=== PATIENT | male | born 1940 | race Caucasian/White ===

== ENCOUNTER 2017-06-28 16:38 | Emergency (ER) | payer OTHER ==
[~2017-06-28] VITALS: Ht 188 cm; Wt 86.0 kg
[2017-06-28 16:45] VITALS: BP 127/89; PULSE 106; RESP 16; TEMP 98.3; O2SAT 96
[2017-06-28] MEDS ORDERED: TETANUS/DIPHTHERIA TOXOID ADULT 0.5 ML VIAL IM ONE (17:00)
[2017-06-28] MEDS ORDERED: LISI2.5T3 PO (17:07)
[2017-06-28] MEDS ORDERED: LIDOCAINE HCL 2% 20 ML VIAL INFIL ONE (17:15)
[2017-06-28] MEDS ORDERED: LIDOCAINE HCL 2% 50 ML VIAL ONE (17:38)
--- NOTE | 2017-06-28 17:45 | PD ---
HPI . Head injury Chief Complaint: Fall Time Seen by Provider: 16:57 Travel History International Travel<30 days: No Contact w/Intl Traveler<30days: No History of Present Illness HPI This patient presents with chief complaint of a laceration to his forehead and head. He states that he tripped and fell and struck his head and face. He denies loss of consciousness. He denies neck pain. He states that he is not on a blood thinner. He does not know the date of his last tetanus shot. [facility] Past Medical History Medical History: Denies Significant Hx Past Surgical History Surgical History: No Previous Surgery Social History Alcohol Use: Yes (4/DAY) Tobacco Use: No Allergies-Medications (Allergen,Severity, Reaction): Coded Allergies: No Known Allergies (Unverified , 06/28/17) Reported Meds & Prescriptions Reported Meds & Active Scripts Active Reported Lisinopril 2.5 Mg Tab 2.5 Mg PO DAILY Review of Systems Except as stated in HPI: all other systems reviewed are Neg Eyes: No: Blurred Vision HENT: No: Lightheadedness Gastrointestinal: No: Nausea Skin: Positive Other (laceration) Physical Exam Narrative GENERAL: Awake and alert and in no acute distress. SKIN: Warm and dry. Large laceration involving the left side of his forehead and his scalp. HEAD: Normocephalic. EYES: Pupils equal and round. Extraocular movements are intact. NECK: Trachea midline. Neck is nontender. Full range of motion without pain. CARDIOVASCULAR: Regular rate and rhythm. RESPIRATORY: No accessory muscle use. MUSCULOSKELETAL: No obvious deformities. No edema. NEUROLOGICAL: Awake and alert. No obvious cranial nerve deficits. Motor grossly within normal limits. Normal speech. PSYCHIATRIC: Appropriate mood and affect; insight and judgment normal. Data Data Last Documented VS Vital Signs Date Time Temp Pulse Resp B/P (MAP) Pulse Ox O2 Delivery O2 Flow Rate FiO2 06/28/17 16:45 98.3 106 16 127/89 (102) 96 Room Air Orders Orders Ct Brain W/O Iv Contrast(Rout) (06/28/17 16:57) Tetanus/Diphtheria Tox Adult (Tetanus/Di (06/28/17 17:00) Lidocaine 2% Inj (Xylocaine 2% Inj) (06/28/17 17:15) Lidocaine 2% Inj (Xylocaine 2% Inj) (06/28/17 17:38) MDM Medical Decision Making Medical Screen Exam Complete: Yes Emergency Medical Condition: Yes Differential Diagnosis My differential diagnosis of head trauma includes but is not limited to scalp contusion, concussion, intracerebral hemorrhage. Narrative Course This patient presents for evaluation and treatment of a scalp laceration. He has been ordered to rule out brain bleed. Last Impressions Head CT 06/28/17 1657 Signed Impressions: Service Date/Time: Wednesday, June 28, 2017 17:25 - CONCLUSION: Mild prominence to the ventricles. 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 Steve Marcos MD FACR Procedures Procedure Narrative LACERATION LOCATION: Forehead and scalp LENGTH: forehead laceration 10.5 cm, scalp laceration 8 cm NUMBER OF STITCHES/MARYAM: 10 REPAIR: The area of the laceration was prepped with saline. The laceration was infiltrated with 2% lidocaine. The wound was copiously irrigated and explored without evidence of foreign body, tendon injury or neurovascular injury. The scalp laceration is through the muscle. The wound was closed using maryam. This was a single layer repair. The forehead laceration was closed with Dermabond. Patient tolerated the procedure well. Diagnosis Primary Impression: Scalp laceration Qualified Codes: S01.01XA - Laceration without foreign body of scalp, initial encounter Patient Instructions: General Instructions, Laceration (DC) Additional Instructions: Clean the wound daily with a gentle shampoo and water. Otherwise, keep the wounds clean and dry. See your doctor in 7 days for staple removal. Seek care sooner for redness, drainage, warmth, unusual pain. Do not use any antibiotic ointment on the glued area. It will dissolve the glue. Disposition: DISCHARGE HOME Condition: Stable Meena Joiner MD Jun 28, 2017 17:45
--- NOTE | 2017-06-28 17:59 | RADRPT ---
EXAM DATE/TIME: 06/28/2017 17:25 [facility] COMPARISON: No previous studies available for comparison. INDICATIONS : Fall. Forehead laceration. RADIATION DOSE: 66.26 CTDIvol (mGy) MEDICAL HISTORY : None SURGICAL HISTORY : None. ENCOUNTER: Initial ACUITY: 1 day PAIN SCALE: 0/10 LOCATION: cranial TECHNIQUE: Multiple contiguous axial images were obtained of the head. Using automated exposure control and adj ustment of the mA and/or kV according to patient size, radiation dose was kept as low as reasonably a chievable to obtain optimal diagnostic quality images. DICOM format image data is available electro nically for review and comparison. FINDINGS: There is mild prominence to the ventricles without significant sulcal dilatation. Prominent cisterna magna is noted. There is no parenchymal hemorrhage, acute infarction or mass lesion. Small cephalhematoma is seen over the left total bone. Moderate chronic right maxillary sinus diseas e is noted. CONCLUSION: Mild prominence to the ventricles. 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 Steve Marcos MD FACR on June 28, 2017 at 17:56 Board Certified Radiologist. This report was verified electronically.
== END 2017-06-28 19:10 | disposition home or self-care (01) ==
LOC: PHED 16:38
DX: S01.01XA Laceration without foreign body of scalp, initial encounter (principal); W01.0XXA Fall on same level from slipping, tripping and stumbling without subsequent striking against object, initial encounter; Z23 Encounter for immunization
CPT/HCPCS: 12004; 12015; 70450; 90471; 90714

== ENCOUNTER 2017-07-06 13:21 | Emergency (ER) | payer OTHER ==
[~2017-07-06] VITALS: Ht 188 cm; Wt 83.0 kg
[~2017-07-06 13:21] MED LIST: LISI2.5T3 PO
[2017-07-06 13:23] VITALS: BP 155/98; PULSE 110; RESP 18; TEMP 98.8
--- NOTE | 2017-07-06 13:46 | PD ---
HPI Chief Complaint: Wound/Suture/Staple Re-Check Time Seen by Provider: 13:28 Travel History International Travel<30 days: No Contact w/Intl Traveler<30days: No Traveled to known affect area: No History of Present Illness HPI 77 year-old male presents to the emergency room for suture removal. Patient had 10 maryam placed 8 days ago on the top of the scalp after an 18 cm laceration. States he has not washed it with soap, water, alcohol, or any other cleaning device since being discharged. Denies any worsening significant pain, drainage, or redness. Denies focal neurological deficits, headache, or any other complaints. [facility] Social History Alcohol Use: Yes (4/DAY) Tobacco Use: No Substance Use: No Allergies-Medications (Allergen,Severity, Reaction): Coded Allergies: No Known Allergies (Unverified , 07/06/17) Reported Meds & Prescriptions Reported Meds & Active Scripts Active Reported Lisinopril 2.5 Mg Tab 2.5 Mg PO DAILY Review of Systems Except as stated in HPI: all other systems reviewed are Neg Physical Exam Narrative GENERAL: Well-nourished, well-developed male in no acute distress. Afebrile. Ambulatory. SKIN: Focused skin assessment warm/dry. An 18 cm well approximated, healed laceration to the left gnosticist and left top of the scalp with 10 intact maryam. There is glue overlying part of the wound. No erythema, drainage, edema, or streaking. There is some impetiginization. HEAD: Normocephalic. EYES: No scleral icterus. No injection or drainage. NECK: Supple, trachea midline. No JVD or lymphadenopathy. CARDIOVASCULAR: Regular rate and rhythm without murmurs, gallops, or rubs. RESPIRATORY: Breath sounds equal bilaterally. No accessory muscle use. NEUROLOGICAL: Awake and alert. Cranial nerves II through XII intact. Motor and sensory grossly within normal limits. Five out of 5 muscle strength in all muscle groups. Normal speech. Data Data Last Documented VS Vital Signs Date Time Temp Pulse Resp B/P (MAP) Pulse Ox O2 Delivery O2 Flow Rate FiO2 07/06/17 13:23 98.8 110 18 155/98 (117) MDM Medical Decision Making Medical Screen Exam Complete: Yes Emergency Medical Condition: Yes Medical Record Reviewed: Yes Differential Diagnosis Suture removal, impetigo, infection, laceration Narrative Course 77-year-old male presents to the emergency room for suture removal. Patient had 10 maryam placed one week ago on top of the scalp. He has not been performing any wound care. Physical exam reveals the glue over the forehead laceration and 10 maryam on the top of the scalp with well approximated, well- healed laceration. There is some impetiginization but no significant erythema or drainage. Wounds are thoroughly cleansed with alcohol and glue and Maryam were removed without difficulty. Patient will be discharged with prescription for mupirocin and told to follow-up with a primary care physician or return for worsening symptoms. He understands and agrees to plan. Diagnosis Primary Impression: Removal of staple Additional Impression: Impetigo Referrals: Primary Care Physician Additional Instructions: Keep wounds clean and dry. Apply ointment daily. Follow-up with primary care physician. Return for worsening symptoms. Disposition: 01 DISCHARGE HOME Condition: Stable Lay Martin Jul 06, 2017 13:46
[2017-07-06 13:48] VITALS: PULSE 90
[2017-07-06] MEDS ORDERED: MUPI2OIN TOPICAL (13:57)
== END 2017-07-06 14:14 | disposition home or self-care (01) ==
LOC: PHEFT 13:21
DX: Z48.02 Encounter for removal of sutures (principal); L01.00 Impetigo, unspecified
CPT/HCPCS: 99283